=== PATIENT | female | born 1935 | race Caucasian/White ===

== ENCOUNTER 2016-04-01 16:28 | Emergency (ER) | payer MEDICARE, OTHER ==
[~2016-04-01] VITALS: Ht 152.4 cm; Wt 68.0 kg
[~2016-04-01 16:28] MED LIST: ALPR0.255 PO; AMIO200T PO; ATEN50TA PO; CLON0.1T PO; DIGO125T PO; FAMO40TA7 PO; FOLI1TAB16 PO; HYDR-3326 PO; MECL-102 PO; OLME40TA3 PO; SIMV40TA5 PO; WARF5TAB77 PO
[2016-04-01] MEDS ORDERED: MORPHINE SULFATE INJ 4 MG/ML DISP.SYRIN ONE (16:46)
[2016-04-01] MEDS ORDERED: ONDANSETRON 4 MG TAB.RAPDIS ONE (16:47)
[2016-04-01] MEDS ORDERED: ONDANSETRON 4 MG TAB.RAPDIS SL ONE (17:00)
[2016-04-01] MEDS ORDERED: MORPHINE SULFATE INJ 2 MG/ML DISP.SYRIN IM ONE (17:00)
[2016-04-01 17:06] LABS: BASOPHILS % (AUTO) 0.2 % (0.0-2.0); DIFF TOTAL % 100 %; EOSINOPHILS % (AUTO) 0.4 % (0.0-6.0); HEMATOCRIT 35 % (33-45); HEMOGLOBIN 11.1 g/dL (11.5-14.8); LYMPHOCYTES # (AUTO) 0.9 /CMM (0.8-4.8); LYMPHOCYTES % (AUTO) 11.5 % (20.0-44.0); MEAN CORPUSCULAR HEMOGLOBIN 23 PG (26.0-33.0); MEAN CORPUSCULAR HGB CONC 32 g/dl (31.0-36.0); MEAN CORPUSCULAR VOLUME 72 fL (82-100); MONOCYTES # (AUTO) 0.4 /CMM (0.1-1.30); MONOCYTES % (AUTO) 5.3 % (2.0-12.0); NEUTROPHILS # (AUTO) 6.8 /CMM (1.8-8.9); NEUTROPHILS % (AUTO) 82.6 % (43.0-81.0); PLATELET COUNT (AUTO) 268 /CMM (150-450); RED BLOOD CELL COUNT(AUTO) 4.89 MIL/uL (4.0-5.2); WHITE BLOOD COUNT (AUTO) 8.2 K/uL (4.3-11.0)
[2016-04-01 17:12] LABS: CALCIUM, SERUM 9.3 mg/dL (8.5-10.1); CREATININE 0.8 mg/dL (0.6-1.3); POTASSIUM 3.4 mmol/L (3.5-5.1)
[2016-04-01 17:17] LABS: PROTHROMBIN TIME 56.7 SECS (9.5-12.7)
[2016-04-01 17:22] LABS: INR 5.16 (0.87-1.13)
[2016-04-01 17:32] LABS: BAND % (MANUAL) 0 % (0.0-5.0); BASOPHILS % (MANUAL) 0 % (0.0-2.0); EOSINOPHILS % (MANUAL) 0 % (0-4); LYMPHOCYTES % (MANUAL) 9 % (16-48)
[2016-04-01 17:33] LABS: PLATELET ESTIMATE ADEQUATE
[2016-04-01 18:53] VITALS: BP 138/88
== END 2016-04-01 18:55 | disposition home or self-care (01) ==
LOC: ER 16:31
DX: S42.291A Other displaced fracture of upper end of right humerus, initial encounter for closed fracture (principal); I10 Essential (primary) hypertension; Z95.2 Presence of prosthetic heart valve; W01.0XXA Fall on same level from slipping, tripping and stumbling without subsequent striking against object, initial encounter; Y93.89 Activity, other specified; Y92.89 Other specified places as the place of occurrence of the external cause; Y99.8 Other external cause status
CPT/HCPCS: 36415; 70450; 70486; 72125; 73030; 80048; 85025; 85730; 96372; 99285; A4606; J2270; Q0162; Z7610

== ENCOUNTER 2016-06-18 17:56 | Inpatient (IN) | payer MEDICARE, OTHER ==
[~2016-06-18] VITALS: Ht 144.8 cm; Wt 65.3 kg
[2016-06-18 12:00] VITALS: BP 163/88
--- NOTE | 2016-06-18 18:00 | NUR ---
Pt bibra 89 c/o sob, speaks in full sentences. sating at 95% ra. nad noted. at for eval. iv access computer service technician. vss. safety and comfort measures provided. will monitor.l
--- NOTE | 2016-06-18 18:20 | NUR ---
laborer beam house at for blood draw.
[2016-06-18 18:33] LABS: BASOPHILS % (AUTO) 0.5 % (0.0-2.0); EOSINOPHILS # (AUTO) 0.1 /CMM (0.0-0.7); EOSINOPHILS % (AUTO) 1.3 % (0.0-6.0); HEMATOCRIT 31 % (33-45); HEMOGLOBIN 9.8 g/dL (11.5-14.8); LYMPHOCYTES # (AUTO) 1.2 /CMM (0.8-4.8); LYMPHOCYTES % (AUTO) 18.3 % (20.0-44.0); MEAN CORPUSCULAR HEMOGLOBIN 24 PG (26.0-33.0); MEAN CORPUSCULAR HGB CONC 32 g/dl (31.0-36.0); MEAN CORPUSCULAR VOLUME 74 fL (82-100); MONOCYTES # (AUTO) 0.5 /CMM (0.1-1.30); MONOCYTES % (AUTO) 8.5 % (2.0-12.0); NEUTROPHILS # (AUTO) 4.6 /CMM (1.8-8.9); NEUTROPHILS % (AUTO) 71.4 % (43.0-81.0); PLATELET COUNT (AUTO) 244 /CMM (150-450); RDW COEFFICIENT OF VARIATION 16.3 (11.5-15.0); RED BLOOD CELL COUNT(AUTO) 4.12 MIL/uL (4.0-5.2); WHITE BLOOD COUNT (AUTO) 6.4 K/uL (4.3-11.0)
[2016-06-18 18:43] LABS: CARBON DIOXIDE 32 mmol/L (21-32); CHLORIDE 101 mmol/L (98-107); CREATININE 0.8 mg/dL (0.6-1.3); GLUCOSE 106 mg/dL (74-106); POTASSIUM 2.9 mmol/L (3.5-5.1); SODIUM SERUM 139 mmol/L (136-145); UREA NITROGEN, BLOOD 19 mg/dL (7-18)
[2016-06-18 18:45] LABS: INR 1.83 (0.87-1.13); PROTHROMBIN TIME 19.7 SECS (9.5-12.7)
[2016-06-18 18:51] LABS: TROPONIN I < 0.017 ng/mL (0.00-0.056)
[2016-06-18 18:55] LABS: ALANINE AMINOTRANSFERASE 24 U/L (12-78); ALBUMIN 3.8 g/dL (3.4-5.0); ALKALINE PHOSPHATASE 50 U/L (46-116); ASPARTATE AMINOTRANSFERASE 28 U/L (15-37); B-TYPE NATRIURETIC PEPTIDE 1429 PG/ML (0-125); BILIRUBIN,DIRECT 0.2 mg/dL (0.0-0.2); BILIRUBIN,TOTAL 0.7 mg/dL (0.2-1.0); TOTAL PROTEIN, SERUM 6.8 g/dL (6.4-8.2)
[2016-06-18] MEDS ORDERED: FUROSEMIDE 20 MG/2 ML VIAL ONE (19:26)
[2016-06-18] MEDS ORDERED: ASPIRIN 325 MG TABLET ONE (19:26)
[2016-06-18] MEDS ORDERED: NITROGLYCERIN PACKET 1 GM PACKET ONE (19:27)
--- NOTE | 2016-06-18 19:29 | NUR ---
DR TORRES ON THE PHONE WITH DR JIANG
[2016-06-18] MEDS ORDERED: ASPIRIN 325 MG TABLET PO ONE (19:30)
[2016-06-18] MEDS ORDERED: NITROGLYCERIN PACKET 1 GM PACKET TD ONE (19:30)
[2016-06-18] MEDS ORDERED: FUROSEMIDE 20 MG/2 ML VIAL IV ONE (19:30)
--- NOTE | 2016-06-18 19:37 | NUR ---
CALLED NURSING SUP FOR TELE BED
[2016-06-18] MEDS ORDERED: POTASSIUM CHLORIDE 20 MEQ TAB.PRT.SR PO ONE ×2 (20:00→20:03)
--- NOTE | 2016-06-18 20:24 | NUR ---
report called to teletype adjuster. will transport pt via acls protocol.
[2016-06-18 20:25] VITALS: BP 150/90
--- NOTE | 2016-06-18 20:25 | NUR ---
RN NOTES RECEIVED PT. FROM ER WITH DX. OF CHF, A/OX4, SWISS SPEAKING, FAMILY AT BEDSIDE,AMBULATORY, AFIB ON TELE MONITOR HR-74, ADMISSIONS INSTRUCTION WAS GIVEN, DENIES PAIN, NO SOB, CALL LIGHT WITHIN REACH, SIDERIALS UPX2 CONTINUE TO MONITOR
[2016-06-18 21:00] VITALS: BP 150/90
[2016-06-18] MEDS ORDERED: ALPRAZOLAM 0.25 MG TABLET PO PRN (21:30)
[2016-06-18] MEDS ORDERED: SIMVASTATIN 40 MG TABLET ONE (21:49)
[2016-06-18] MEDS: SIMVASTATIN 40 MG TABLET PO SCH (21:54)
[2016-06-18] MEDS ORDERED: ALBUTEROL FS 2.5 MG/3 ML VIAL.NEB NEB PRN (22:00)
[2016-06-19] VITALS (7 sets, daily range): BP systolic 143–176; BP diastolic 70–89
[2016-06-19] MEDS ORDERED: hydrALAZINE HCL 25 MG TABLET ONE (00:18)
[2016-06-19] MEDS: hydrALAZINE HCL 25 MG TABLET PO PRN ×2 (00:24→21:06)
--- NOTE | 2016-06-19 00:25 | NUR ---
MS NURSE NOTES BP 163/88 hr 79 . GAVE PRN HYDRALAZINE 25 MG TABLET PO.
--- NOTE | 2016-06-19 06:36 | NUR ---
MS NURSE'S CLOSING NOTES PATIENT IS IN STABLE CONDITION. PT IS SLEEPING IN BED. NO SOB OR SIGNS OF DISTRESS. BED IS IN LOW LOCKED POSITION. SIDE RAILS UP X2, CALL LIGHT WITHIN REACH.
--- NOTE | 2016-06-19 07:10 | NUR ---
B2B SALES EXECUTIVE NOTES RECEIVED PATIENT IN BED, AWAKE. A/O X3. ON TELE MONITOR AFIB HR 85. DENIES CHEST PAIN. ON ROOM AIR, TOLERATING WELL. NO SOB NOTED. IV IN RIGHT HAND G 20 PATENT AND INTAC, FLUSHES WELL. NO C/O PAIN AT THIS TIME. CALL LIGHT WITHIN REACH. WILL CONT TO MONITOR.
[2016-06-19 08:12] LABS: BASOPHILS % (AUTO) 0.4 % (0.0-2.0); EOSINOPHILS # (AUTO) 0.1 /CMM (0.0-0.7); EOSINOPHILS % (AUTO) 0.9 % (0.0-6.0); HEMATOCRIT 31 % (33-45); LYMPHOCYTES # (AUTO) 1.2 /CMM (0.8-4.8); LYMPHOCYTES % (AUTO) 18.6 % (20.0-44.0); MEAN CORPUSCULAR HEMOGLOBIN 24 PG (26.0-33.0); MEAN CORPUSCULAR HGB CONC 33 g/dl (31.0-36.0); MEAN CORPUSCULAR VOLUME 73 fL (82-100); MONOCYTES # (AUTO) 0.5 /CMM (0.1-1.30); MONOCYTES % (AUTO) 8.1 % (2.0-12.0); NEUTROPHILS # (AUTO) 4.6 /CMM (1.8-8.9); PLATELET COUNT (AUTO) 246 /CMM (150-450); RED BLOOD CELL COUNT(AUTO) 4.17 MIL/uL (4.0-5.2); WHITE BLOOD COUNT (AUTO) 6.4 K/uL (4.3-11.0)
[2016-06-19 08:26] LABS: CALCIUM, SERUM 8.9 mg/dL (8.5-10.1); CREATININE 0.7 mg/dL (0.6-1.3); MAGNESIUM 1.6 mg/dL (1.8-2.4)
[2016-06-19 08:36] LABS: POTASSIUM 2.6 mmol/L (3.5-5.1)
[2016-06-19 08:56] LABS: BASOPHILS % (MANUAL) 1 % (0.0-2.0); EOSINOPHILS % (MANUAL) 1 % (0-4); LYMPHOCYTES % (MANUAL) 13 % (16-48); MONOCYTES % (MANUAL) 7 % (0-11.0); NEUTROPHILS % (MANUAL) 78 (42-76); PLATELET ESTIMATE ADEQUATE
[2016-06-19 08:57] LABS: ANISOCYTOSIS 1+; HYPOCHROMASIA 1+
[2016-06-19] MEDS ORDERED: FUROSEMIDE 40 MG/4 ML VIAL IV SCH (09:00)
--- NOTE | 2016-06-19 09:06 | NUR ---
PATIENT IS ON DIGOXIN MEDICATION. BLOOD DRAW FOR DIGOXIN LEVEL, AWAITING FOR RESULT.
[2016-06-19] MEDS: AMIODARONE HCL 200 MG TABLET PO SCH ×2 (09:20→21:06)
[2016-06-19] MEDS: MECLIZINE HCL 25 MG TABLET PO SCH ×2 (09:20→16:39)
[2016-06-19] MEDS: FOLIC ACID 1 MG TABLET PO SCH ×2 (09:20→16:39)
[2016-06-19] MEDS: ATENOLOL 50 MG TABLET PO SCH (09:21)
[2016-06-19] MEDS: CLONIDINE HCL 0.1 MG TABLET PO SCH ×2 (09:22→16:39)
[2016-06-19] MEDS ORDERED: IV SET PRIMARY PUMP SET 1 EA INFUS.SET MC ONE ×2 (09:32→18:52)
[2016-06-19] MEDS ORDERED: IV NS 0.9% 250 ML IV ONE ×2 (09:33→14:22)
[2016-06-19] MEDS: POTASSIUM CL. PREMIX PERIPHER. 50 ML IV SCH ×4 (09:47→14:58)
[2016-06-19] MEDS: Magnesium 1GM/D5W 100ML PREMIX 100 ML IV SCH ×4 (10:48→18:16)
[2016-06-19] MEDS: POTASSIUM CHLORIDE 20 MEQ TAB.PRT.SR PO SCH ×3 (11:00→15:09)
[2016-06-19] MEDS: DIGOXIN 0.125 MG TABLET PO SCH (11:00)
[2016-06-19] MEDS: WARFARIN SODIUM 5 MG TABLET PO SCH (11:03)
[2016-06-19] MEDS: ENOXAPARIN SODIUM 30 MG/0.3 ML DISP.SYRIN SQ SCH (13:37)
--- NOTE | 2016-06-19 15:32 | NUR ---
MAGNESIUM IV DUPLICATE ORDERS, WILL ADMINISTER MAGNESIUM 1GM X2 DOSES AFTER POTASSIUM IV IS FINISHED.
[2016-06-19] MEDS ORDERED: POTASSIUM CHLORIDE 20 MEQ TAB.PRT.SR PO SCH (16:00)
--- NOTE | 2016-06-19 16:03 | NUR ---
K DUR DUPLICATE ORDERS. K DUR 20MEQ 1 TAB PO GIVEN AT 1509 FOR 3RD DOSE.
[2016-06-19 16:30] LABS: THYROID STIMULATING HORMONE 1.844 uIU/mL (0.358-3.74)
--- NOTE | 2016-06-19 18:00 | NUR ---
LASIX 40MG IV X1 WAS MISSED ADMINISTERED THIS MORNING. CALLED SPOKE TO DR. WATTERS, ORDERED TO GIVE LASIX 40MG IV X1, NOTED AND ACKNOWLEDGED.
[2016-06-19] MEDS ORDERED: FUROSEMIDE 40 MG/4 ML VIAL IV ONE (18:30)
--- NOTE | 2016-06-19 18:31 | NUR ---
MARINE FUEL DOCK ATTENDANT CLOSING NOTES PATIENT IN BED, NOT IN DISTRESS. ON TELE MONITOR AFIB HR 90, DENIES CHEST PAIN. NO C/O SHORTNESS OF BREATH. POTASSIUM IV AND IV MAGNESIUM SUPPLEMENTED TODAY, PATIENT TOLERATED WELL. MADE COMFORTABLE IN BED. CALL LIGHT WITHIN REACH. LAB IN AM ORDERED. WILL ENDORSE TO VENDING MECHANIC RN FOR CONTINUITY OF CARE.
--- NOTE | 2016-06-19 19:00 | NUR ---
PER PATIENT, DAUGHTER WILL BRING BENICAR MEDICATION TONIGHT. ENDORSED TO COMBER TENDER RN.
--- NOTE | 2016-06-19 19:30 | NUR ---
TITLE SEARCHER INITIAL NOTE RECEIVED PT AWAKE AND ALERT, ORIENTED X4, FAMILY AT BEDSIDE, NO COMPLAINT OF PAIN OR RESPIRATORY DISTRESS NOTED DURING PHYSICAL ASSESSMENT, PT RECEIVING POTASSIUM AND MAGNESIUM SUPPLEMENT IVPB DUE TO LOW POTASSIUM AND MAGNESIUM, WILL F/U WITH AM LABS, PT IS AMBULATORY AND HAS BRP, RADHA WAS BROUGHT BY DAUGHTER AND HAS BEEN SENT TO PHARMACY, SAFETY MEASURES WILL BE MAINTAINED, NEEDS WILL BE ANTICIPATED AND ATTENDED TO DURING HOURLY ROUNDS AND NEEDED.
[2016-06-19] MEDS: FAMOTIDINE (20 MG) 20 MG TABLET PO SCH ×2 (21:06→21:08)
[2016-06-19] MEDS: SIMVASTATIN 40 MG TABLET PO SCH (21:06)
[2016-06-20] VITALS: BP 148/66
[2016-06-20 04:00] VITALS: BP 145/72
--- NOTE | 2016-06-20 06:54 | NUR ---
TOWER SUPERVISOR CLOSING NOTE PT REMAINED STABLE DURING ACCOUNTS PAYABLE SUPERVISOR, EPISODES NOTED OF INCREASE HR DURING PT'S AMBULATION TO BATHROOM TO (HR 130), BUT IT IMMEDIATELY COMES BACK TO (HR 80-90) WHEN PT IS BACK IN BED AND SLEEPING, NO COMPLAINT OF PAIN OR RESPIRATORY DISTRESS NOTED OR REPORTED DURING ACCOUNTS PAYABLE SUPERVISOR, PT IS CLEAN/DRY AND COMFORTABLE, ALL SAFETY MEASURES MAINTAINED DURING NIGHT, WILL ENDORSE TO INCOMING NURSE FOR SHAYNE.
[2016-06-20 07:04] VITALS: BP 139/71
--- NOTE | 2016-06-20 07:45 | NUR ---
CULLED FRUIT PACKER OPENING NNOTE PATIENT IS ALERT AND ORIENTED x4. NO PAIN AT THIS TIME. NO SOB OR DISTRESS NOTED. SAFETY MEASURES IMPLEMENTED. CALL LIGHT WITHIN REACH. ALL NURSING CARE NEEDS WILL BE ATTENDED TO. BED LOCKED IN LOWEST POSITION WITH SIDERAILS UP x2. IV INTACT AND PATENT NO REDNESS OR SWELLING NOTED. WILL CONTINUE TO MONITOR
[2016-06-20 07:56] LABS: CALCIUM, SERUM 8.8 mg/dL (8.5-10.1); CREATININE 0.7 mg/dL (0.6-1.3); MAGNESIUM 1.9 mg/dL (1.8-2.4); PHOSPHORUS 3.4 mg/dL (2.5-4.9); POTASSIUM 3.2 mmol/L (3.5-5.1)
[2016-06-20 08:04] LABS: THYROID STIMULATING HORMONE 1.842 uIU/mL (0.358-3.74)
[2016-06-20] MEDS: MECLIZINE HCL 25 MG TABLET PO SCH ×2 (08:21→16:52)
[2016-06-20] MEDS: DIGOXIN 0.125 MG TABLET PO SCH (08:22)
[2016-06-20] MEDS: FOLIC ACID 1 MG TABLET PO SCH ×2 (08:22→16:52)
[2016-06-20] MEDS: ATENOLOL 50 MG TABLET PO SCH (08:22)
[2016-06-20] MEDS: AMIODARONE HCL 200 MG TABLET PO SCH (08:22)
[2016-06-20] MEDS: CLONIDINE HCL 0.1 MG TABLET PO SCH ×2 (08:23→16:50)
[2016-06-20] MEDS: OLMESARTAN MEDOXOMIL 40 MG PO SCH ×2 (08:30→09:00)
[2016-06-20] MEDS: WARFARIN SODIUM 5 MG TABLET PO SCH (08:33)
[2016-06-20] MEDS: POTASSIUM CHLORIDE 20 MEQ TAB.PRT.SR PO SCH ×3 (10:49→12:01)
[2016-06-20] MEDS: DILTIAZEM HCL CD 240 MG PO SCH (10:50)
[2016-06-20] MEDS: CARVEDILOL 12.5 MG TABLET PO SCH ×2 (10:50→21:06)
[2016-06-20] MEDS ORDERED: MAG HYDROX/AL HYDROX/SIMETH 30 ML UDC PO PRN (11:30)
[2016-06-20] MEDS: ENOXAPARIN SODIUM 30 MG/0.3 ML DISP.SYRIN SQ SCH (12:05)
[2016-06-20 16:00] VITALS: BP 101/61
--- NOTE | 2016-06-20 18:32 | NUR ---
MS RN CLOSING NOTE PATIENT IS ALERT AND ORIENTED x4. NO PAIN AT THIS TIME. NO SOB OR DISTRESS NOTED. SAFETY MEASURES IMPLEMENTED. CALL LIGHT WITHIN REACH AT ALL TIMES. IV INTACT AND PATENT NO REDNESS OR SWELLING NO SIGNIFICANT CHANGES NOTED. ALL DUE MEDICATIONS GIVEN ORDERED. WILL HAVE SPEECH THERAPY EVALUATION. WILL ENDORSE TO TURNING MACHINE OPERATOR NURSE.
--- NOTE | 2016-06-20 19:30 | NUR ---
MS RN INITIAL NOTE RECEIVED PT AWAKE AND ALERT, ORIENTED X4, MOSTLY [place] SPEAKING BUT ABLE TO COMMUNICATE NEEDS IN [place], NO APPARENT DISTRESS OR PAIN NOTED DURING PHYSICAL ASSESSMENT, PT IS CLEAN/DRY AND COMFORTABLE, SAFETY MEASURES WILL BE MAINTAINED AT ALL TIMES, NEEDS WILL BE ANTICIPATED AND ATTENDED TO DURING HOURLY ROUNDS AND NEEDED.
[2016-06-20 20:00] VITALS: BP 121/64
[2016-06-20 20:12] VITALS: BP 121/64
[2016-06-20] MEDS: SIMVASTATIN 40 MG TABLET PO SCH (21:05)
[2016-06-20] MEDS: FAMOTIDINE (20 MG) 20 MG TABLET PO SCH (21:05)
--- NOTE | 2016-06-21 06:30 | NUR ---
MS RN CLOSING NOTE PT REMAINED STABLE DURING DRAWING TRACER, NO SIGNIFICANT CHANGES NOTED, PT SLEPT MOST OF THE NIGHT WITH NO REPORTS OF PAIN OR RESPIRATORY DISTRESS, CLEAN/DRY AND COMFORTABLE WITH ALL NEEDS ATTENDED DURING HOURLY ROUNDS AND NEEDED, SAFETY MEASURES OBSERVED AT ALL TIMES, WILL ENDORSE TO INCOMING NURSE FOR SHAYNE.
--- NOTE | 2016-06-21 07:33 | NUR ---
AM RN NOTE Received patient awake, A/O x3 verbally responsive. Denies any pain or discomfort at this time. IV site intact and patent. Bed in low locked position. Will continue to monitor.
[2016-06-21 07:35] LABS: BASOPHILS % (AUTO) 0.6 % (0.0-2.0); EOSINOPHILS # (AUTO) 0.1 /CMM (0.0-0.7); EOSINOPHILS % (AUTO) 2.4 % (0.0-6.0); HEMATOCRIT 30 % (33-45); HEMOGLOBIN 9.6 g/dL (11.5-14.8); LYMPHOCYTES # (AUTO) 1.4 /CMM (0.8-4.8); LYMPHOCYTES % (AUTO) 22.5 % (20.0-44.0); MEAN CORPUSCULAR HEMOGLOBIN 24 PG (26.0-33.0); MEAN CORPUSCULAR HGB CONC 32 g/dl (31.0-36.0); MEAN CORPUSCULAR VOLUME 74 fL (82-100); MONOCYTES # (AUTO) 0.7 /CMM (0.1-1.30); MONOCYTES % (AUTO) 10.8 % (2.0-12.0); NEUTROPHILS # (AUTO) 3.9 /CMM (1.8-8.9); NEUTROPHILS % (AUTO) 63.7 % (43.0-81.0); PLATELET COUNT (AUTO) 230 /CMM (150-450); RDW COEFFICIENT OF VARIATION 16.3 (11.5-15.0); RED BLOOD CELL COUNT(AUTO) 4.03 MIL/uL (4.0-5.2); WHITE BLOOD COUNT (AUTO) 6.1 K/uL (4.3-11.0)
[2016-06-21 07:45] LABS: INR 2.87 (0.87-1.13); PROTHROMBIN TIME 32.9 SECS (9.5-12.7)
[2016-06-21 07:48] LABS: ALBUMIN 3.6 g/dL (3.4-5.0); BILIRUBIN,TOTAL 0.8 mg/dL (0.2-1.0); CALCIUM, SERUM 8.8 mg/dL (8.5-10.1); CREATININE 0.8 mg/dL (0.6-1.3); PHOSPHORUS 3.3 mg/dL (2.5-4.9); TOTAL PROTEIN, SERUM 6.4 g/dL (6.4-8.2)
[2016-06-21 08:00] VITALS: BP 125/70
[2016-06-21] MEDS: FOLIC ACID 1 MG TABLET PO SCH ×2 (08:13→17:11)
[2016-06-21] MEDS: MECLIZINE HCL 25 MG TABLET PO SCH ×2 (08:13→17:11)
[2016-06-21] MEDS: CARVEDILOL 12.5 MG TABLET PO SCH ×2 (08:14→20:57)
[2016-06-21] MEDS: DIGOXIN 0.125 MG TABLET PO SCH (08:14)
[2016-06-21] MEDS: DILTIAZEM HCL CD 240 MG PO SCH (08:14)
[2016-06-21] MEDS: OLMESARTAN MEDOXOMIL 40 MG PO SCH (08:15)
[2016-06-21] MEDS: CLONIDINE HCL 0.1 MG TABLET PO SCH ×2 (08:15→17:12)
[2016-06-21] MEDS: WARFARIN SODIUM 5 MG TABLET PO SCH (08:17)
[2016-06-21 16:00] VITALS: BP 138/66
--- NOTE | 2016-06-21 18:34 | NUR ---
AM RN NOTE Patient awake, A/O X3. Denies any pain at this time. Will endorse to next shift for SHAYNE.
[2016-06-21 20:00] VITALS: BP 121/50
--- NOTE | 2016-06-21 20:00 | NUR ---
patient receied alert and oriented times 3;maex4;denies pain or sob;pt on room air with sats >93%;no distress noted
[2016-06-21] MEDS: FAMOTIDINE (20 MG) 20 MG TABLET PO SCH (20:57)
[2016-06-21] MEDS: SIMVASTATIN 40 MG TABLET PO SCH (20:57)
[2016-06-21 23:40] LABS: APPEARANCE,URINE CLEAR (CLEAR); BILIRUBIN,URINE NEGATIVE (NEGATIVE); BLOOD, URINE TRACE Ery/uL (NEGATIVE); COLOR,URINE YELLOW (YELLOW); KETONES,URINE NEGATIVE (NEGATIVE); LEUKOCYTE ESTERASE ,URINE NEGATIVE (NEGATIVE); NITRITE, URINE NEGATIVE (NEGATIVE); PH,URINE 7.5 (5.0-8.0); PROTEIN,URINE NEGATIVE (NEGATIVE); UGLUCOSE NEGATIVE (NEGATIVE)
[2016-06-21 23:45] LABS: ADD URINE CULTURE NO; BACTERIA,URINE None seen /HPF (None Seen); RBC,URINE 0-2 /HPF (0-2); SQUAMOUS EPITHELIAL CELL,UR Few /HPF (None Seen); WBC,URINE 0-2 /HPF (0-3)
--- NOTE | 2016-06-22 00:30 | NUR ---
patient requesting xanax for anxiety;med given per order;will cont to monitor
--- NOTE | 2016-06-22 07:38 | NUR ---
AM RN NOTE Received patient awake, A/O X3 verbally responsive. Denies any pain at this time. Bed in low locked position. Will continue to monitor. Call light with in reach.
[2016-06-22 07:52] LABS: BASOPHILS % (AUTO) 0.5 % (0.0-2.0); EOSINOPHILS # (AUTO) 0.1 /CMM (0.0-0.7); EOSINOPHILS % (AUTO) 1.6 % (0.0-6.0); HEMATOCRIT 31 % (33-45); HEMOGLOBIN 10.1 g/dL (11.5-14.8); LYMPHOCYTES # (AUTO) 1.3 /CMM (0.8-4.8); LYMPHOCYTES % (AUTO) 19.7 % (20.0-44.0); MEAN CORPUSCULAR HEMOGLOBIN 24 PG (26.0-33.0); MEAN CORPUSCULAR HGB CONC 32 g/dl (31.0-36.0); MEAN CORPUSCULAR VOLUME 74 fL (82-100); MONOCYTES # (AUTO) 0.6 /CMM (0.1-1.30); MONOCYTES % (AUTO) 9.4 % (2.0-12.0); NEUTROPHILS # (AUTO) 4.6 /CMM (1.8-8.9); NEUTROPHILS % (AUTO) 68.8 % (43.0-81.0); PLATELET COUNT (AUTO) 235 /CMM (150-450); RDW COEFFICIENT OF VARIATION 16.8 (11.5-15.0); RED BLOOD CELL COUNT(AUTO) 4.23 MIL/uL (4.0-5.2); WHITE BLOOD COUNT (AUTO) 6.7 K/uL (4.3-11.0)
[2016-06-22 08:00] VITALS: BP 125/70
[2016-06-22 08:05] LABS: CALCIUM, SERUM 8.7 mg/dL (8.5-10.1); CREATININE 0.8 mg/dL (0.6-1.3); POTASSIUM 3.9 mmol/L (3.5-5.1)
[2016-06-22 08:06] LABS: PROTHROMBIN TIME 51.7 SECS (9.5-12.7)
[2016-06-22 08:11] LABS: INR 4.4 (0.87-1.13)
--- NOTE | 2016-06-22 08:35 | NUR ---
AM RN NOTE Called Dr. Velarde made aware about PT/INR results (INR 4.40). Per Dr. Velarde hold Coumadin now and he will adjust dose.
[2016-06-22] MEDS: FOLIC ACID 1 MG TABLET PO SCH ×2 (09:09→17:09)
[2016-06-22] MEDS: MECLIZINE HCL 25 MG TABLET PO SCH ×2 (09:09→17:09)
[2016-06-22] MEDS: DILTIAZEM HCL CD 240 MG PO SCH (09:10)
[2016-06-22] MEDS: CLONIDINE HCL 0.1 MG TABLET PO SCH ×2 (09:10→17:09)
[2016-06-22] MEDS: CARVEDILOL 12.5 MG TABLET PO SCH ×2 (09:10→21:00)
[2016-06-22] MEDS: DIGOXIN 0.125 MG TABLET PO SCH (09:12)
[2016-06-22] MEDS: OLMESARTAN MEDOXOMIL 40 MG PO SCH (09:12)
[2016-06-22] MEDS ORDERED: WARFARIN SODIUM 2.5 MG TABLET PO SCH (12:30)
--- NOTE | 2016-06-22 12:30 | NUR ---
AM RN NOTE Dr. Velrade doing his rounds new order for Coumadin 2.5 mg PO noted and carried out.
--- NOTE | 2016-06-22 15:00 | NUR ---
AM RN NOTE Dr. Velarde ordered to discontinue Coumadin order, noted and carried out. Pt had XR esophagram done as ordered.
[2016-06-22 16:00] VITALS: BP_SYST 121; BP_DIAS 61; BP_DIAS 68
--- NOTE | 2016-06-22 18:38 | NUR ---
AM RN NOTE Patient lying in her bed with eyes closed and family at bedside. No acute distress noted. Will endorse care to next shift.
--- NOTE | 2016-06-22 19:52 | NUR ---
MS/RN OPENING NOTES RECEIVED PATIENT WITH FAMILY MEMBER. ALERT, ORIENTED AND COOPERATIVE TO CARE. ABLE TO VERBALIZE NEEDS. NO S/S OF SOB OR DISTRESS. WILL CONTINUE SHAYNE.
[2016-06-22 20:00] VITALS: BP_SYST 108; BP_SYST 114; BP_DIAS 54; BP_DIAS 73
--- NOTE | 2016-06-22 20:26 | NUR ---
MS/RN NOTES PATIENT REPORTED PAIN 3/10 AND WOULD LIKE SOME PAIN MEDICATION TYLENOL FOR HEADACHE. WILL F/U WITH MD .CHARGE NURSE INFORMED.
[2016-06-22 20:48] VITALS: BP 108/54
[2016-06-22] MEDS: FAMOTIDINE (20 MG) 20 MG TABLET PO SCH (21:07)
[2016-06-22] MEDS: SIMVASTATIN 40 MG TABLET PO SCH (21:07)
[2016-06-22] MEDS ORDERED: ACETAMINOPHEN 325 MG TABLET ONE (21:51)
[2016-06-22] MEDS: ACETAMINOPHEN 325 MG TABLET PO PRN (22:03)
--- NOTE | 2016-06-23 06:20 | NUR ---
MS/RN CLOSING NOTES PATIENT IN BED. ABLE TO SLEEP DURING THE NIGHT. W/ NO S/S OF SOB OR DISTRESS. CALL LIGHTS WITHIN REACH. ATTEND TO NEEDS AT ALL TIMES. WILL ENDORSE TO AM RN REGARDING SHAYNE.
[2016-06-23 07:40] LABS: CALCIUM, SERUM 8.6 mg/dL (8.5-10.1); CREATININE 0.8 mg/dL (0.6-1.3)
[2016-06-23 07:45] LABS: PROTHROMBIN TIME 60.1 SECS (9.5-12.7)
[2016-06-23 07:49] LABS: INR 5.06 (0.87-1.13)
[2016-06-23 08:00] VITALS: BP 124/67
--- NOTE | 2016-06-23 08:00 | NUR ---
m/s award clerk: notes dr. thomason notified via exchange re: inr result=5.06, dispatcher will send message to md. bonner (charter representative student) of dr. thomason made aware. no s/s of bleeding. instructed to call for assistance. will continue to monitor.
--- NOTE | 2016-06-23 08:12 | NUR ---
m/s automatic print developer: notes dr. thomason here and aware of inr result.
[2016-06-23] MEDS: MECLIZINE HCL 25 MG TABLET PO SCH ×2 (09:05→16:33)
[2016-06-23] MEDS: DIGOXIN 0.125 MG TABLET PO SCH (09:06)
[2016-06-23] MEDS: CARVEDILOL 12.5 MG TABLET PO SCH (09:07)
[2016-06-23] MEDS: FOLIC ACID 1 MG TABLET PO SCH ×2 (09:07→16:34)
[2016-06-23] MEDS: OLMESARTAN MEDOXOMIL 40 MG PO SCH (09:10)
[2016-06-23] MEDS: ACETAMINOPHEN 325 MG TABLET PO PRN (09:10)
--- NOTE | 2016-06-23 11:00 | NUR ---
M/S KNIT TUBING DYER: MD VISIT SEEN AND EXAMINED BY DR. MARIN AT THIS TIME.
[2016-06-23] MEDS: DILTIAZEM HCL CD 240 MG PO SCH (11:03)
[2016-06-23] MEDS: CLONIDINE HCL 0.1 MG TABLET PO SCH ×2 (11:03→16:33)
--- NOTE | 2016-06-23 13:00 | NUR ---
m/s computer system technician: notes family and family doctor here and request for dr. thomason paged and wants pt to be discharge today, stated by her primary doctor, "there's no reason for her to be here, i know about her inr, there's no reason for her to stay another day, all she needs is to hold her coumadin for now and i will follow up." left message to [facility] by cn. will continue to monitor.
--- NOTE | 2016-06-23 14:15 | NUR ---
m/s die storage worker: notes family and family doctor left and informed me once dr. thomason calls back, just have him call me on my cell, he knows me as stated. cn aware.
--- NOTE | 2016-06-23 15:18 | NUR ---
m/s internal recruiter: notes dr. thomason called back and informed md that pt's primary wants her discharge today, stated, "i will give her a call right now."
[2016-06-23 16:00] VITALS: BP 147/64
--- NOTE | 2016-06-23 16:00 | NUR ---
m/s binder coverstitch: notes dr. thomason here and received verbal order to d'c pt home, continue home meds, and f/u with pmd on sunday and to hold coumadin for 2 days. orders read back and carried out and acknowledged.
--- NOTE | 2016-06-23 16:20 | NUR ---
m/s crew team member: d'c instruction discharged instructions given to pt with [facility] staff translating and verbalized understanding. daughter on her way to pick her up, spoke to her over the phone.
[2016-06-23 16:33] VITALS: BP 147/64
--- NOTE | 2016-06-23 17:05 | NUR ---
m/s trade marker: notes h/l removed with tip intact with no bleeding, no redness, and no swelling noted. grandson here, but waiting for his mother to be here to take pt home.
--- NOTE | 2016-06-23 17:45 | NUR ---
M/S RECREATION TECHNICIAN: DISCHARGED DISCHARGED HOME ACCOMPANIED BY DAUGHTER AND GRANDSON VIA PRIVATE CAR IN STABLE CONDITION WITH ALL D'C PAPERS AND BELONGINGS.
== END 2016-06-23 17:45 | disposition home or self-care (01) | DRG 291 ==
LOC: ER 17:58 → TELE 20:03 → MED 06-20 09:49
PROVIDERS: ADMIT Internal Medicine; ATTEND Internal Medicine
DX: I13.0 Hypertensive heart and chronic kidney disease with heart failure and stage 1 through stage 4 chronic kidney disease, or unspecified chronic kidney disease (principal); I50.33 Acute on chronic diastolic (congestive) heart failure; E44.0 Moderate protein-calorie malnutrition; D68.59 Other primary thrombophilia; J98.11 Atelectasis; I16.0 Hypertensive urgency; D50.9 Iron deficiency anemia, unspecified; I48.91 Unspecified atrial fibrillation; N18.9 Chronic kidney disease, unspecified; K21.9 Gastro-esophageal reflux disease without esophagitis; E78.5 Hyperlipidemia, unspecified; Z95.2 Presence of prosthetic heart valve; E87.6 Hypokalemia; E66.9 Obesity, unspecified; R13.10 Dysphagia, unspecified; Z79.01 Long term (current) use of anticoagulants; Z68.31 Body mass index [BMI] 31.0-31.9, adult
CPT/HCPCS: 36415; 71010-TC; 74230-TC; 80048-TC; 80053-TC; 80076-TC; 80162-TC; 81000-TC; 82728-TC; 83540-TC; 83735-TC; 83880; 84100-TC; 84439-TC; 84443-TC; 84484-TC; 85025-TC; 85610-TC; 85730-TC; 87081-TC; 92611-TC; A4606; J1650; J1940; J3475; J3480; J7050; J8597; Z7610

== ENCOUNTER 2017-03-15 09:07 | Emergency (ER) | payer MEDICARE, OTHER ==
[~2017-03-15] VITALS: Ht 165.1 cm; Wt 61.2 kg
[~2017-03-15 09:07] MED LIST changes: +OLME40TA12 PO; -OLME40TA3 PO
--- NOTE | 2017-03-15 09:07 | NUR ---
[id number] FROM HOME: LEFT SIDE BODY WEAKNESS, LAST SEEN WELL 03/14/17 at 1900[address] nad noted[address] rueda at bedside for eval. pt placed in gown and monitor. rt at bedside.
[2017-03-15] MEDS ORDERED: ROCURONIUM BROMIDE 50 MG/5 ML IV ONE (09:09)
[2017-03-15] MEDS ORDERED: ETOMIDATE 2 MG/ML VIAL IV ONE ×2 (09:09→10:00)
--- NOTE | 2017-03-15 09:15 | NUR ---
JOSSY BENTON CALLED AND NOTIFIED OF CODE STROKE
[2017-03-15] MEDS ORDERED: CT SWABBABLE VALVE TRANS SET 1 EA INFUS.SET MC ONE (09:19)
[2017-03-15] MEDS ORDERED: IOHEXOL-350 100 ML VIAL IV ONE (09:19)
[2017-03-15 09:23] LABS: BASOPHILS # (AUTO) 0.1 /CMM (0.0-0.2); BASOPHILS % (AUTO) 0.7 % (0.0-2.0); EOSINOPHILS % (AUTO) 0.5 % (0.0-6.0); HEMATOCRIT 36 % (33-45); HEMOGLOBIN 11.6 g/dL (11.5-14.8); LYMPHOCYTES # (AUTO) 1.3 /CMM (0.8-4.8); LYMPHOCYTES % (AUTO) 14.3 % (20.0-44.0); MEAN CORPUSCULAR HEMOGLOBIN 24 PG (26.0-33.0); MEAN CORPUSCULAR HGB CONC 32 g/dl (31.0-36.0); MEAN CORPUSCULAR VOLUME 76 fL (82-100); MONOCYTES # (AUTO) 0.5 /CMM (0.1-1.30); MONOCYTES % (AUTO) 5.5 % (2.0-12.0); NEUTROPHILS # (AUTO) 6.9 /CMM (1.8-8.9); PLATELET COUNT (AUTO) 233 /CMM (150-450); RDW COEFFICIENT OF VARIATION 16.6 (11.5-15.0); RED BLOOD CELL COUNT(AUTO) 4.77 MIL/uL (4.0-5.2); WHITE BLOOD COUNT (AUTO) 8.8 K/uL (4.3-11.0)
--- NOTE | 2017-03-15 09:27 | NUR ---
TELE-STROKE CALLED AGAIN PER DR CASTILLO'S REQUEST [phone]
[2017-03-15] MEDS ORDERED: LINA290C PO (09:29)
[2017-03-15] MEDS ORDERED: WARF2.5T47 PO (09:29)
[2017-03-15] MEDS ORDERED: WARF5TAB77 PO (09:29)
[2017-03-15] MEDS ORDERED: METO25TA20 PO (09:29)
[2017-03-15] MEDS ORDERED: DILT30TA14 PO (09:29)
[2017-03-15] MEDS ORDERED: DEXL60CA3 PO (09:29)
[2017-03-15] MEDS ORDERED: OLME1TAB52 PO (09:29)
[2017-03-15] MEDS ORDERED: ATOR10TA PO (09:29)
[2017-03-15] MEDS ORDERED: MONT10TA22 PO (09:30)
[2017-03-15] MEDS ORDERED: HYDR-4076 PO (09:30)
--- NOTE | 2017-03-15 09:30 | NUR ---
[facility] CALLED FOR NEURO/IR, SPOKE WITH FRANCISCO
[2017-03-15 09:37] LABS: ALANINE AMINOTRANSFERASE 29 U/L (12-78); ALBUMIN 4.6 g/dL (3.4-5.0); ALKALINE PHOSPHATASE 87 U/L (46-116); ASPARTATE AMINOTRANSFERASE 32 U/L (15-37); BILIRUBIN,DIRECT 0.2 mg/dL (0.0-0.2); BILIRUBIN,TOTAL 0.8 mg/dL (0.2-1.0); CALCIUM, SERUM 9.5 mg/dL (8.5-10.1); CHLORIDE 99 mmol/L (98-107); CREATININE 0.6 mg/dL (0.6-1.3); GLUCOSE 116 mg/dL (74-106); POTASSIUM 3.7 mmol/L (3.5-5.1); SODIUM SERUM 137 mmol/L (136-145); TOTAL PROTEIN, SERUM 8.3 g/dL (6.4-8.2); UREA NITROGEN, BLOOD 12 mg/dL (7-18)
[2017-03-15] MEDS ORDERED: PROPOFOL 100 ML ONE ×2 (09:37→10:57)
[2017-03-15 09:42] LABS: TROPONIN I < 0.017 ng/mL (0.00-0.056)
[2017-03-15 09:43] LABS: INR 1.54 (0.87-1.13); PROTHROMBIN TIME 16.1 SECS (9.5-12.7)
[2017-03-15 09:45] VITALS: BP 183/81
[2017-03-15 09:50] LABS: CARBON DIOXIDE 27 mmol/L (21-32)
[2017-03-15] MEDS ORDERED: ROCURONIUM BROMIDE 100 MG/10 ML VIAL IV ONE (10:00)
[2017-03-15] MEDS ORDERED: PROPOFOL 100 ML IV PRN (10:00)
[2017-03-15 10:20] LABS: CHOLESTEROL 154 mg/dL (<200); HDL CHOLESTEROL 39 mg/dL (40-60); LDL 100 mg/dL (0-99); TRIGLYCERIDES 84 mg/dL (30-150)
--- NOTE | 2017-03-15 10:20 | NUR ---
faxed facesheet to [phone]
--- NOTE | 2017-03-15 10:32 | NUR ---
XRAY AT BEDSIDE
[2017-03-15 10:33] VITALS: BP 190/123
--- NOTE | 2017-03-15 10:49 | NUR ---
REPORT GIVEN TO MARY JANE OLMEDO RN
--- NOTE | 2017-03-15 11:10 | NUR ---
PT VIA [facility] TRANSPORT WITH [facility] TEAM. NO FURTHER COMPLAINTS. FAMILY AWARE.
== END 2017-03-15 11:09 | disposition short-term general hospital (02) ==
LOC: ER 09:08
DX: I63.9 Cerebral infarction, unspecified (principal); I48.91 Unspecified atrial fibrillation; I10 Essential (primary) hypertension; Z79.01 Long term (current) use of anticoagulants; Z95.2 Presence of prosthetic heart valve
CPT/HCPCS: 31500; 36415; 51702; 70450; 71045; 80048; 80061; 80076; 84484; 85025; 85730; 86850; 93005; 99291; A4606; J3490 ×3; J7030; Q9967; Z7610